=== PATIENT | male | born 1985 | race Caucasian/White ===

== ENCOUNTER 2017-05-04 16:50 | Emergency (ER) | payer MEDICAID ==
[~2017-05-04] VITALS: Ht 190.5 cm; Wt 114.0 kg
[2017-05-05 00:09] VITALS: BP 136/79
== END 2017-05-05 00:14 | disposition home or self-care (01) ==
LOC: ER 16:50
DX: H66.93 Otitis media, unspecified, bilateral (principal); F17.200 Nicotine dependence, unspecified, uncomplicated
CPT/HCPCS: 99283

== ENCOUNTER 2017-08-15 12:34 | Emergency (ER) | payer MEDICAID ==
[~2017-08-15] VITALS: Ht 170.2 cm; Wt 110.0 kg
[2017-08-15 12:42] VITALS: BP 122/77
== END 2017-08-15 13:45 | disposition home or self-care (01) ==
LOC: ER 12:34
DX: K08.89 Other specified disorders of teeth and supporting structures (principal); F17.200 Nicotine dependence, unspecified, uncomplicated
CPT/HCPCS: 99283

== ENCOUNTER 2017-10-12 11:43 | Emergency (ER) | payer MEDICAID ==
[~2017-10-12] VITALS: Ht 190.5 cm; Wt 129.0 kg
[2017-10-12 13:01] VITALS: BP 147/93
== END 2017-10-12 13:58 | disposition home or self-care (01) ==
LOC: ER 12:25
DX: K08.89 Other specified disorders of teeth and supporting structures (principal); K03.81 Cracked tooth; K02.9 Dental caries, unspecified; K05.10 Chronic gingivitis, plaque induced
CPT/HCPCS: 99283

== ENCOUNTER 2017-10-29 18:47 | Emergency (ER) | payer MEDICAID ==
[~2017-10-29] VITALS: Ht 175.3 cm; Wt 122.0 kg
[2017-10-29] MEDS ORDERED: IBUPROFEN 800MG TABLET PO ONE (22:45)
[2017-10-30 00:37] VITALS: BP 115/69
== END 2017-10-30 00:47 | disposition home or self-care (01) ==
LOC: ER 18:47
DX: J02.9 Acute pharyngitis, unspecified (principal); R50.9 Fever, unspecified; F17.200 Nicotine dependence, unspecified, uncomplicated
CPT/HCPCS: 87070; 87430; 99284; Z7610

== ENCOUNTER 2018-02-03 13:38 | Emergency (ER) | payer MEDICAID | END 2018-02-03 15:08 | disposition left against medical advice (07) | LOC: ER 13:38 | DX: K08.89 Other specified disorders of teeth and supporting structures (principal); Z53.21 Procedure and treatment not carried out due to patient leaving prior to being seen by health care provider ==